=== PATIENT | female | born 1960 | race Caucasian/White ===

== ENCOUNTER 2022-06-17 12:02 | Emergency (ER) | payer BC ==
[~2022-06-17] VITALS: Ht 157.5 cm; Wt 83.5 kg
[2022-06-17 12:10] VITALS: BP 139/91
--- NOTE | 2022-06-17 13:03 | NUR ---
Patient ambulated with steady gait to bed 3.
[2022-06-17 13:36] LABS: BASOPHILS % (AUTO) 0.6 % (0.0-2.0); EOSINOPHILS # (AUTO) 0.2 K/uL (0-0.4); EOSINOPHILS % (AUTO) 2.7 % (0.0-4.0); HEMATOCRIT 41.3 % (36-48); HEMOGLOBIN 14.2 g/dL (12.0-16.0); LYMPHOCYTES # (AUTO) 2.7 K/uL (2.5-16.5); LYMPHOCYTES % (AUTO) 38.8 % (20.5-51.1); MEAN CORPUSCULAR HEMOGLOBIN 29 pg (27-31); MEAN CORPUSCULAR HGB CONC 34 g/dL (33-37); MEAN CORPUSCULAR VOLUME 85.5 fL (80-94); MONOCYTES # (AUTO) 0.5 K/uL (0.8-1.0); NEUTROPHILS # (AUTO) 3.4 K/uL (1.8-7.7); NEUTROPHILS % (AUTO) 49.9 % (42.2-75.2); PLATELET COUNT (AUTO) 262 K/uL (140-450); RED BLOOD CELL COUNT(AUTO) 4.83 MIL/uL (4.20-5.40); RED CELL DISTRIBUTION WIDTH 13.1 % (11.6-13.7); WHITE BLOOD COUNT (AUTO) 6.8 K/uL (4.8-10.8)
[2022-06-17 14:02] LABS: ALBUMIN 3.5 g/dL (3.4-5.0); ANION GAP 15.3 (8-16); ASPARTATE AMINOTRANSFERASE 28 U/L (15-37); CARBON DIOXIDE 27.1 mmol/L (21-32); CHLORIDE 104 mmol/L (98-107); CREATININE 0.9 mg/dL (0.6-1.3); GFR ARICAN-AMERICAN 82 mL/min (>90); GLUCOSE 92 mg/dL (74-106); POTASSIUM 4.4 mmol/L (3.5-5.1); SODIUM SERUM 142 mmol/L (136-145); TOTAL BILIRUBIN 0.3 mg/dL (0.0-1.0); UREA NITROGEN, BLOOD 22 mg/dL (7-18)
--- NOTE | 2022-06-17 15:00 | NUR ---
PT TAKEN TO CT
--- NOTE | 2022-06-17 15:00 | NUR ---
PT C/O RIGHT ARM PAIN RADIATING TO CHEST AND NECK PRESSURE TYPE PAIN X1 WEEK. NSR ON MONITOR. PENDING RESULTS. NAD. SAFETY MAINTAINED.
[2022-06-17] MEDS ORDERED: levETIRAcetam 500 MG TAB PO ONE ×2 (19:10→19:20)
[2022-06-17] MEDS ORDERED: levETIRAcetam 500 MG TAB ONE (20:23)
[2022-06-17] MEDS ORDERED: LIDOCAINE 5% 1 EA PATCH TP ONE (20:24)
[2022-06-17] MEDS ORDERED: LID5T TP (20:29)
[2022-06-17 20:30] VITALS: BP 132/70
--- NOTE | 2022-06-17 20:30 | NUR ---
Patient discharged with v/s stable. Written and verbal after care instructions given and explained. Patient alert, oriented and verbalized understanding of instructions. Ambulatory with steady gait. All questions addressed prior to discharge. ID band removed. Patient advised to follow up with PMD. Rx of LIDOCAINE PATCH given. Patient educated on indication of medication including possible reaction and side effects. Opportunity to ask questions provided and answered.
[2022-06-18] MEDS ORDERED: LIDOCAINE 5% 1 EA PATCH TP SCH (09:00)
== END 2022-06-17 20:30 | disposition home or self-care (01) ==
LOC: MED 12:02
DX: M54.10 Radiculopathy, site unspecified (principal); M25.511 Pain in right shoulder; Z79.899 Other long term (current) drug therapy
CPT/HCPCS: 36415; 71045; 72125; 80053; 84484; 85025; 93005; 99285; Q0092